=== PATIENT | female | born 1945 | race Caucasian/White ===

== ENCOUNTER 2021-09-29 11:28 | Emergency (ER) | payer OTHER ==
[~2021-09-29] VITALS: Ht 157.5 cm; Wt 57.2 kg
[2021-09-29] MEDS ORDERED: LIPITOR20 MG PO (11:41)
[2021-09-29] MEDS ORDERED: REGLAN5 MG/5 ML PO (11:43)
== END 2021-09-29 16:47 ==
LOC: ER 11:28
DX: T78.49XA Other allergy, initial encounter (principal); X58.XXXA Exposure to other specified factors, initial encounter